=== PATIENT | male | born 1945 | race Caucasian/White ===

== ENCOUNTER 2017-09-28 16:05 | Emergency (ER) | payer OTHER, MEDICARE ==
[~2017-09-28] VITALS: Ht 175.3 cm; Wt 72.6 kg
[2017-09-28 16:50] LABS: ABSOLUTE BASOPHIL COUNT 0 /CUMM (0.0-0.2); ABSOLUTE EOSINOPHIL COUNT 0.2 /CUMM (0.0-0.7); ABSOLUTE LYMPH COUNT 1.6 /CUMM (1.2-3.4); ABSOLUTE MONOCYTE COUNT 0.5 /CUMM (0.10-0.60); BASOPHIL % 0.5 % (0.0-2.0); GRANULOCYTE % 63.7 % (42.2-75.2); MEAN CORPUSCULAR HGB 33.5 PG (27.0-31.0); MEAN CORPUSCULAR HGB CONC 33.6 G/DL (33.0-37.0); MEAN CORPUSCULAR VOLUME 99.7 FL (80.0-94.0); MEAN PLATELET VOLUME 8.5 FL (7.4-10.4); PLATELET COUNT 256 /CUMM (130-400); RBC DISTRIBUTION WIDTH 14.2 % (11.5-14.5); RED BLOOD CELL CT 4.41 /CUMM (4.70-6.10); WHITE BLOOD CELL COUNT 6.4 /CUMM (4.8-10.8)
--- NOTE | 2017-09-28 17:04 | ED CARDIAC/CP/PALPITATIONS ---
History of Present Illness General Chief Complaint: Chest Pain Stated Complaint: SIB DR. CHERRY FOR CHEST PAIN Source: old records Exam Limitations: no limitations Vital Signs & Intake/Output Vital Signs & Intake/Output Vital Signs Date Time Temp Pulse Resp B/P B/P Pulse O2 O2 Flow FiO2 Mean Ox Delivery Rate 09/28 1609 97.0 76 15 123/82 98 Room Air Room Air Allergies Coded Allergies: nitroglycerin (Severe, PT TOLD NOT TO TAKE IT DUE TO ON VIAGRA PRN 09/28/17) Triage Note: PT TO ED FOR C/C OF RECURRING MID TO LEFT CHEST PAIN X A FEW MONTHS BUT PAINS HAVE BECOME STRONGER. DENIES SOB, LIGHTHEADEDNESS, N/V. SENT BY DR. CHERRY FOR TROPONIN LEVELS. PT RECENTLY HAD A STRESS TEST AND ECHO WHICH WERE BOTH NORMAL. DR. CHERRY WANTS TO BE CONTACTED ON HIS CELL PHONE AFTER TEST RESULTS. Triage Nurses Notes Reviewed? yes HPI: 72M PMH GERD presenting with 3 years of chest pain that has gotten worse today. Chest pain is left sided, non-radiating, moderate, not associated with exertion, activity, or position. He denies SOB, palpitations, lightheadedness. No family history of cardiac disease, non-smoker. Recently had an outpatient exercise stress echocardiogram which, per Dr. Cherry, had some EKG changes but no imaging abnormalities. He is scheduled for a nuclear stress test. Per Dr. Cherry, he should have two sets of cardiac enzymes and then can be discharged home with outpatient follow up if they are normal. Past History Travel History Traveled to [place] past 21 day No Medical History Any Pertinent Medical History? see below for history EENT: HERPES Gastrointestinal: GERD Surgical History Surgical History: non-contributory Psychosocial History What is your primary language Mexican Tobacco Use: Quit >30 days ago ETOH Use: heavy use Illicit Drug Use: denies illicit drug use Family History Hx Contributory? No Review of Systems Review of Systems Constitutional: Reports: no symptoms. EENTM: Reports: no symptoms. Respiratory: Reports: no symptoms. Cardiovascular: Reports: no symptoms. GI: Reports: no symptoms. Genitourinary: Reports: no symptoms. Musculoskeletal: Reports: no symptoms. Skin: Reports: no symptoms. Neurological/Psychological: Reports: no symptoms. Hematologic/Endocrine: Reports: no symptoms. Immunologic/Allergic: Reports: no symptoms. All Other Systems: Reviewed and Negative Physical Exam Physical Exam General Appearance: well developed/nourished, no apparent distress Head: atraumatic, normal appearance Eyes: Bilateral: normal appearance. Ears, Nose, Throat: normal pharynx, hearing grossly normal Neck: normal inspection, supple, full range of motion Respiratory: normal breath sounds, no respiratory distress Cardiovascular: regular rate/rhythm Gastrointestinal: soft, non-tender Back: normal inspection, normal range of motion Extremities: normal inspection Neurologic/Psych: awake, alert, oriented x 3, normal mood/affect Skin: intact, normal color, warm/dry Core Measures ACS in differential dx? Yes No ASA d/t Medication Refused CVA/TIA Diagnosis No Sepsis Present: No Sepsis Focused Exam Completed? No Progress Differential Diagnosis: AMI, aortic dissection, atrial fibrillation, cholecystitis, CHF/pulm edema, costochondritis, hyperkalemia, hypovolemia, hyperthyroid, hyperventilation, intracranial hemorrhage, musculoskeletal pain, myocarditis, pancreatitis, pericarditis, pneumonia, pneumothorax, PSVT, pulmonary embolism, PUD/GERD, PVCs/PACs, respiratory failure, rib fracture, sepsis, unstable angina, V-fib/V-Tach, WPW syndrome Plan of Care: Orders Procedure Date/time Status TROPONIN LEVEL 09/28 193 Active EKG 09/28 193 Active TROPONIN LEVEL 09/28 1611 Complete LIPASE 09/28 161 Complete COMPREHENSIVE METABOLIC PANEL 09/28 161 Complete CBC WITHOUT DIFFERENTIAL 09/28 161 Complete EKG 09/28 1606 Active Laboratory Tests 09/28/17 1930: Troponin I Pending 09/28/17 1623: Anion Gap 12, Estimated GFR > 60, BUN/Creatinine Ratio 21.0, Glucose 91, Calcium 9.8, Total Bilirubin 0.7, AST 28, ALT 32, Alkaline Phosphatase 70, Troponin I < 0.01, Total Protein 7.5, Albumin 4.7, Globulin 2.8, Albumin/Globulin Ratio 1.7, Lipase 237, CBC w Diff NO MAN DIFF REQ, RBC 4.41 L, MCV 99.7 H, MCH 33.5 H, MCHC 33.6, RDW 14.2, MPV 8.5, Gran % 63.7, Lymphocytes % 24.9, Monocytes % 7.9, Eosinophils % 3.0, Basophils % 0.5, Absolute Granulocytes 4.0, Absolute Lymphocytes 1.6, Absolute Monocytes 0.5, Absolute Eosinophils 0.2, Absolute Basophils 0 Initial ED EKG: normal sinus rhythm, no ST T wave changes Repeat EKG: unchanged Departure Departure Disposition: HOME OR SELF CARE Condition: Stable Clinical Impression Primary Impression: Chest pain at rest Referrals: Santosh Tejada MD (PCP/Family) Additional Instructions: Follow up with your contracting analyst for your stress test. Return to ER if any new or worsening symptoms. Departure Forms: Customer Survey General Discharge Information Critical Care Note Critical Care Note Critical Care Time: non-applicable
[2017-09-28 21:03] VITALS: BP 166/85
== END 2017-09-28 21:08 ==
LOC: ERH 16:05
PROVIDERS: Internal Medicine
DX: R07.9 Chest pain, unspecified (principal)
CPT/HCPCS: 93005; 93010